=== PATIENT | female | born 1995 | race Caucasian/White ===

== ENCOUNTER 2022-08-03 16:45 | Emergency (ER) | payer OTHER, SELFPAY ==
[2022-08-03 16:58] VITALS: BP 124/72; PULSE 84; RESP 16; TEMP 36.7; O2SAT 100
--- NOTE | 2022-08-03 17:45 | ED.GENADULT ---
HPI - General Adult General Chief complaint: Urogenital-Female Stated complaint: uti Source: patient Mode of arrival: ambulatory Limitations: no limitations History of Present Illness HPI narrative: Patient presents for evaluation of urinary symptoms. Symptom onset today. Symptoms include urinary frequency, urgency, dysuria. She denies any fever, chills, nausea, vomiting, abdominal pain, back pain, vaginal bleeding or discharge. She has had urinary tract infections in the past and this feels similar. He is wondering whether increased alcohol consumption 2 nights ago may be contributory. Related Data Home Medications Medication Instructions Recorded Confirmed lamotrigine 200 mg tablet 200 mg PO DAILY 08/03/22 08/03/22 quetiapine 100 mg tablet 100 mg PO HS 08/03/22 08/03/22 spironolactone 50 mg tablet 50 mg PO BID 08/03/22 08/03/22 Allergies Allergy/AdvReac Type Severity Reaction Status Date / Time No Known Allergies Allergy Unverified 08/03/22 17:03 Review of Systems Review of Systems: CONSTITUTIONAL: Denies fever, chills, or sweats. EYES: Denies visual changes, redness, or discharge. ENT: Denies rhinorrhea, congestion, sore throat, or otalgia. CARDIOVASCULAR: Denies chest pain, palpitations, or edema. RESPIRATORY: Denies cough or dyspnea. GASTROINTESTINAL: Denies abdominal pain, nausea, vomiting, or diarrhea. GENITOURINARY: Reports dysuria, urinary frequency and urgency. SKIN: Denies rash or itching. MUSCULOSKELETAL: Denies back pain, joint pain, or myalgia. NEUROLOGIC: Denies headache, numbness, dizziness, or weakness. PSYCHIATRIC: Denies anxiety or depression. [facility] Past Medical History Medical History No pertinent past medical history Surgical History Surgical History No pertinent past surgical history Family History Family History Mother Family history non-contributory Other Family history of malignant neoplasm Social History Social History Smoking status: Light tobacco smoker Alcohol intake: current Alcohol use details: social Substance use: never Gender identity (if verbalized by the patient): Female Spiritual care concerns: No Exam Narrative: GENERAL: Well-appearing, well-nourished, and in no acute distress. HEAD: Normocephalic, atraumatic. EYES: PERRLA and EOMI. ENT: Nares clear, no rhinorrhea or epistaxis. Mucous membranes moist. Oropharynx without tonsillar hypertrophy exudate or other lesions. Bilateral TMs pearly gil nonbulging NECK: Supple. No adenopathy or masses. No carotid bruits or JVD CHEST: Clear to auscultation. No respiratory distress. No wheezes rales or rhonchi HEART: Regular rate and rhythm. No murmur heard. Normal peripheral pulses. ABDOMEN: Soft, nontender, nondistended, normal active bowel sounds. EXTREMITIES: Normal range of motion. No edema. SKIN: Warm, dry, no rash. NEURO: No focal deficits. Alert and oriented x3. PSYCH: Normal mood and affect. Course Course Emergency Course: This is a 26-year-old female who presented for evaluation of urinary symptoms. There is evidence of infection today in urine. Will send for culture. Start Macrobid. Increase hydration. Follow up with primary provider. Go to the ER for worsening symptoms. Patient in agreement with the care plan Level of Care: Express Care Visit Vital Signs Vital signs: Vital Signs Temperature 36.7 C 08/03/22 16:58 Pulse Rate 84 08/03/22 16:58 Respiratory Rate 16 08/03/22 16:58 Blood Pressure 124/72 08/03/22 16:58 Pulse Oximetry 100 08/03/22 16:58 Oxygen Delivery Room Air 08/03/22 16:58 Temperature 36.7 C 08/03/22 16:58 Pulse Rate 84 08/03/22 16:58 Respiratory Rate 16 08/03/22 16:58 Blood Pressure 124/
== END 2022-08-03 17:48 | disposition home or self-care (01) ==
PROVIDERS: Emergency Provider Nurse Practitioner; PCP Nurse Practitioner Family
DX: N39.0 Urinary tract infection, site not specified (principal); F17.200 Nicotine dependence, unspecified, uncomplicated
CPT/HCPCS: 81003; 87077; 87086; 87186; 99203; G0463

== ENCOUNTER 2022-08-28 08:28 | Emergency (ER) | payer OTHER, SELFPAY ==
[2022-08-28 08:33] VITALS: BP 112/71; PULSE 99; RESP 20; TEMP 37.1; O2SAT 100
--- NOTE | 2022-08-28 08:50 | ED.EYEPROB ---
HPI - Eye Problem General Chief complaint: Eye Problems Stated complaint: pain and swelling in left eye Time Seen by Provider: 08/28/22 08:50 Source: patient and RN notes reviewed Mode of arrival: ambulatory Limitations: no limitations History of Present Illness HPI Narrative: 26-year-old female presents concern for pain and swelling of her left eye. Reports last night she felt like she had something in her eye like an eyelash, she said she rubbed it. She woke up in the middle of the night with pain in her eye and her upper and lower lid were swollen. She denies itching, lip swelling, tongue swelling, trouble breathing, rash. MD chief complaint: eye pain Related Data Home Medications Medication Instructions Recorded Confirmed lamotrigine 200 mg tablet 200 mg PO DAILY 08/03/22 08/28/22 quetiapine 100 mg tablet 100 mg PO HS 08/03/22 08/28/22 spironolactone 50 mg tablet 50 mg PO BID 08/03/22 08/28/22 Allergies Allergy/AdvReac Type Severity Reaction Status Date / Time No Known Allergies Allergy Unverified 08/28/22 08:46 Review of Systems Review of Systems: CONSTITUTIONAL: Denies malaise, chills, sweats, or fever. EYES: Denies visual changes. Reports left eye redness, irritation, upper and lower eyelid swelling ENT: Denies rhinorrhea, congestion, sinus pain, otalgia or sore throat. SKIN: Denies rash or itching. NEUROLOGIC: Denies numbness, weakness, or headache. PSYCHIATRIC: Denies anxiety or depression. All systems reviewed & are unremarkable except as noted in HPI and below PMFSH Past Medical History Medical History No pertinent past medical history Surgical History Surgical History No pertinent past surgical history Family History Family History Mother Family history non-contributory Other Family history of malignant neoplasm Social History Social History Smoking status: Light tobacco smoker Alcohol intake: current Alcohol use details: social Substance use: never Occupation/Education: student Gender identity (if verbalized by the patient): Female Spiritual care concerns: No Comments At time of signature, agree with nursing past medical, surgical, social and family history. There is no relevant family history pertinent to the presenting complaint Exam Narrative: GENERAL: Well-appearing, well-nourished, and in no acute distress. HEAD: Normocephalic, atraumatic. EYES: PERRLA, right sclera clear, and EOMI. No nystagmus. Left sclera and conjunctivae injected, left Upper and lower eyelid edematous without induration, erythema, tenderness. No periorbital edema noted ENT: Nares clear, turbinates pink, no rhinorrhea or epistaxis. Mucous membranes moist. TM pearly gil with sharp light reflex bilaterally; no tragal tenderness. NECK: Supple. CHEST: No respiratory distress. Speaks in full sentences. HEART: Regular rate and rhythm. SKIN: Warm, dry, no visible rash. NEURO: Alert and oriented x3. PSYCH: Normal mood and affect Course Course Emergency Course: Patient is aware of diagnosis, understands and agrees to treatment plan. Anticipatory guidance given. Patient agrees to follow-up as directed and is aware of reasons to seek care at the emergency department. Portions of this record may have been created with voice recognition software Level of Care: Express Care Visit Vital Signs Vital signs: Vital Signs Temperature 98.8 F 08/28/22 08:33 Pulse Rate 99 08/28/22 08:33 Respiratory Rate 20 08/28/22 08:33 Blood Pressure 112/71 08/28/22 08:33 Pulse Oximetry 100 08/28/22 08:33 Oxygen Delivery Room Air 08/28/22 08:33 Temperature 98.8 F 08/28/22 08:33 Pulse Rate 99 08/28/22 08:33 Respiratory Rate 20 08/28/22 08:33
== END 2022-08-28 09:20 | disposition home or self-care (01) ==
PROVIDERS: Emergency Provider Nurse Practitioner; PCP Nurse Practitioner Family
DX: H10.9 Unspecified conjunctivitis (principal); F17.200 Nicotine dependence, unspecified, uncomplicated; F31.9 Bipolar disorder, unspecified
CPT/HCPCS: 99213; A9270; G0463